=== PATIENT | male | born 1980 | race African-American/Black ===

== ENCOUNTER → 2018-02-05 | Day surgery (SDC) | payer BC ==
[2018-02-02 15:13] LABS: BASOPHILS % 0.4 % (0.0-1.0); EOSINOPHILS # (AUTO) 0.5 (0.0-0.4); EOSINOPHILS % 6.6 % (0.0-6.0); HEMATOCRIT 42.6 % (38.2-49.6); HEMOGLOBIN 14.2 g/dL (14.0-18.0); LYMPHOCYTES # (AUTO) 3.1 (1.0-3.2); LYMPHOCYTES % 37.9 % (18.0-39.1); MEAN CORPUSCULAR HEMOGLOBIN 31.7 pg (28-32); MEAN CORPUSCULAR HGB CONC 33.3 g/dL (31-35); MEAN CORPUSCULAR VOLUME 95.1 fL (81-99); MONOCYTES # (AUTO) 0.8 (0.2-0.8); MONOCYTES % 9.9 % (4.4-11.3); NEUTROPHILS # (AUTO) 3.6 (2.1-6.9); NEUTROPHILS % 45.1 % (38.7-80.0); PLATELET COUNT 241 x10e3/uL (140-360); RED BLOOD COUNT 4.48 x10e6/uL (4.3-5.7); RED CELL DISTRIBUTION WIDTH 11.8 % (11.7-14.4)
[~2018-02-05] MED LIST: B-12500 MCG; BUPIVACAINE 0.25%/EPI 30ML SDV INJ ONE; FENTANYL CITRATE/PF 100MCG/2 ML INJ ONE; FISH OIL 1,0001 EAC3; KETOROLAC TROMETHAMINE 30 MG/ML VIAL ONE; LIDOCAINE HCL 1% LOCAL INJ 20 ML VIAL ONE; MIDAZOLAM HCL 2 MG/2 ML VIAL ONE; NEOMYCIN/POLYMYX/BACITR OINT 0.9 GM PKT ONE; PRAVASTATIN SOD10 MG; VITAMIN C100 MG
--- NOTE | 2018-02-05 09:41 | Operative Report ---
DATE OF PROCEDURE: February 05, 2018 PREOPERATIVE DIAGNOSIS: Mass of the right temporal area. POSTOPERATIVE DIAGNOSIS: Mass of the right temporal area. OPERATION PERFORMED: Excision of mass of right temporal area. [employer]: MOHAMUD Gleason. ANESTHESIA: General. COMPLICATIONS: None. ESTIMATED BLOOD LOSS: Minimal. DESCRIPTION OF PROCEDURE: With the patient lying in bed in the supine position, under good general anesthesia, the right side of the scalp was prepped with Betadine solution and draped in the usual manner. The area overlying the mass in the temporal area was then infiltrated with 1/4 percent Marcaine with epinephrine. An incision was made. It was carried down through the subcutaneous tissue and through the muscle. In a submuscular plane, between the muscle and the bone, a lipomatous mass was immediately encountered which was well encapsulated. This was slowly and carefully from all of the surrounding structures, and perfect hemostasis was ascertained. The mass was totally and completely removed and sent for pathological examination. The whole area was then inspected, and hemostasis was ascertained. The muscle was then reapproximated with interrupted sutures of 3-0 Vicryl, and the skin was closed with interrupted vertical mattress sutures of 2-0 Prolene. A dressing with Neosporin was applied. The sponge, lap and needle count was correct. Patient tolerated the procedure well and returned to the recovery room in stable condition. Job#: [id number]
== END | disposition home or self-care (01) ==
LOC: OR 06:18
PROVIDERS: ATTEND Surgery
DX: D17.0 Benign lipomatous neoplasm of skin and subcutaneous tissue of head, face and neck (principal); E78.5 Hyperlipidemia, unspecified; F17.290 Nicotine dependence, other tobacco product, uncomplicated; Z01.812 Encounter for preprocedural laboratory examination
CPT/HCPCS: 21014; 36415; 85025; 88304; J1885; J2250; 88305; J2001